=== PATIENT | female | born 1960 | race Asian ===

== ENCOUNTER 2023-07-15 12:38 | Emergency (ER) | payer OTHER ==
[~2023-07-15] VITALS: Ht 152.4 cm; Wt 51.8 kg
[~2023-07-15 12:38] MED LIST: LISI-894 PO; METF-445 PO
[2023-07-15 12:42] VITALS: TEMP 98.5
[2023-07-15] MEDS ORDERED: EMPA25TA3 PO (12:45)
[2023-07-15] MEDS ORDERED: LOSA-381 PO (12:45)
[2023-07-15] MEDS ORDERED: INSLAN SQ (12:45)
[2023-07-15] MEDS ORDERED: IBUPROFEN 600 MG TABLET PO ONE (13:15)
[2023-07-15] MEDS ORDERED: METHOCARBAMOL 500 MG TABLET PO ONE (13:15)
[2023-07-15 14:12] VITALS: BP 131/62; PULSE 76; RESP 18
== END 2023-07-15 14:15 | disposition home or self-care (01) ==
LOC: EMS 12:49
DX: S39.012A Strain of muscle, fascia and tendon of lower back, initial encounter (principal); E11.9 Type 2 diabetes mellitus without complications; I10 Essential (primary) hypertension; Z98.890 Other specified postprocedural states; V89.2XXA Person injured in unspecified motor-vehicle accident, traffic, initial encounter; Y93.89 Activity, other specified; Y92.89 Other specified places as the place of occurrence of the external cause; Y99.8 Other external cause status
CPT/HCPCS: 82962; 99283